=== PATIENT | female | born 1945 | race American Indian/Alaskan Native ===

== ENCOUNTER 2018-09-27 14:09 | Emergency (ER) | payer MEDICARE, BC ==
[2018-09-27 14:20] VITALS: BMI 32.5
--- NOTE | 2018-09-27 15:54 | C.PDOC ---
Time Seen by Provider: 09/27/18 14:34 Chief Complaint (Nursing): Upper Extremity Problem/Injury Past Medical History Vital Signs: Last Vital Signs Temp 99.1 F 09/27/18 14:22 Pulse 64 09/27/18 14:22 Resp 20 09/27/18 14:22 BP 197/84 H 09/27/18 14:22 Pulse Ox 97 09/27/18 14:22 Primary Care Provider: Henry Lopez - Medical History PMH: Arthritis, Back Problems, Bronchitis (hospitalized childhood), Colonic Polyps, COPD, Diabetes, Fractures (bilat hands right arm childhood), Gall Bladder Disease, Hepatitis, HTN, Osteoporosis, Sleep Apnea (no c pap) Denies: Chronic Kidney Disease Surgical History: Cholecystectomy, Tonsillectomy - [facility] Procedures CENTRAL VENOUS CATHETER PLACEMENT WITH GUIDANCE (03/21/14) EXCIS DEBRIDE OF WOUND, INFECT, OR BURN (02/07/13) OTHER SKIN & SUBQ I D (02/07/13) VENOUS CATHETERIZATION NEC (02/07/13) Family History: States: Unknown Family Hx - Social History Hx Tobacco Use: No Hx Alcohol Use: No Hx Substance Use: No - Immunization History Hx Tetanus Toxoid Vaccination: No Hx Influenza Vaccination: Yes Hx Pneumococcal Vaccination: Yes ED Course And Treatment O2 Sat by Pulse Oximetry: 97 Disposition - Disposition
--- NOTE | 2018-09-27 16:36 | CT ---
Date of service: 09/27/2018 PROCEDURE: CT HEAD WITHOUT CONTRAST. HISTORY: Trauma COMPARISON: None available. TECHNIQUE: Axial computed tomography images were obtained through the head/brain without intravenous contrast. Radiation dose: Total exam DLP = 974.37 mGy-cm. This CT exam was performed using one or more of the following dose reduction techniques: Automated exposure control, adjustment of the mA and/or kV according to patient size, and/or use of iterative reconstruction technique. FINDINGS: HEMORRHAGE: No intracranial hemorrhage. BRAIN: There are mild chronic microangiopathic changes. There is no mass, mass effect or abnormal extra-axial fluid collection. There is no territorial infarction. The midline sagittal structures are normal.There are coarse atherosclerotic calcifications in the cavernous carotid arteries. VENTRICLES: There is mild age-related global parenchymal volume loss and proportionate enlargement of the ventricles and cortical sulci. There is a cavum septum pellucidum CALVARIUM: There is no calvarial fracture or extracranial soft tissue swelling. PARANASAL SINUSES: There is moderate mucosal thickening in the ethmoid air cells and left maxillary sinus. MASTOID AIR CELLS: Predominantly clear. OTHER FINDINGS: None. IMPRESSION: No acute intracranial abnormality. Mild chronic microangiopathic changes and mild age-related global parenchymal volume loss. Chronic ethmoid and left maxillary sinusitis.
[2018-09-27 17:02] VITALS: BP 170/76; PULSE 90; RESP 18; TEMP 98.1; O2SAT 100
--- NOTE | 2018-09-27 17:02 | RAD ---
Date of service: 09/27/2018 PROCEDURE: Right Wrist Radiographs. HISTORY: trauma COMPARISON: None. TECHNIQUE: 4 views obtained. FINDINGS: BONES: Normal. No fracture. JOINTS: Normal. No dislocation. SOFT TISSUES: Normal. OTHER FINDINGS: None. IMPRESSION: Normal right wrist radiographs.
--- NOTE | 2018-09-27 17:03 | RAD ---
PROCEDURE: Right Hand Radiographs. HISTORY: trauma COMPARISON: None. TECHNIQUE: 3 views obtained. FINDINGS: BONES: Normal. No fracture. JOINTS: Normal. No osteoarthritic changes. SOFT TISSUES: Normal. OTHER FINDINGS: None. IMPRESSION: Normal right hand radiographs.
--- NOTE | 2018-09-27 17:03 | RAD ---
PROCEDURE: Radiographs of the Right Forearm HISTORY: trauma COMPARISON: None available. TECHNIQUE: Single lateral view submitted. One views obtained. FINDINGS: BONES: Limited examination consists of only a single view. No definite fracture. There is some cortical irregularity of the palmar aspect of the radial neck. Correlating with plain radiography of the elbow the same date, this is unlikely to represent acute fracture but may reflect old injury. JOINT SPACES: Unremarkable. OTHER FINDINGS: None. IMPRESSION: Limited examination. No acute fracture
--- NOTE | 2018-09-27 17:05 | RAD ---
Date of service: 09/27/2018 PROCEDURE: Radiographs of the right elbow. HISTORY: trauma COMPARISON: No prior. TECHNIQUE: 3 views obtained. FINDINGS: BONES: No acute fracture. There is a cortical step-off at the ventral aspect of the right radial neck, possibly the result of old injury. JOINTS: Normal. No osteoarthritis. SOFT TISSUES: Normal. JOINT EFFUSION: None. OTHER FINDINGS: None. IMPRESSION: No acute fracture.
--- NOTE | 2018-09-27 17:06 | RAD ---
Date of service: 09/27/2018 PROCEDURE: Bilateral Knee Radiographs. HISTORY: trauma COMPARISON: None. TECHNIQUE: 4 views obtained. FINDINGS: BONES: Right Knee: No acute fracture. Left Knee: Left knee arthroplasty. No acute fracture. JOINTS: Right Knee: Medial and patellofemoral osteoarthritis. No articular erosion. Left knee: Left knee arthroplasty. No evidence of prosthesis loosening. SOFT TISSUES: Right Knee: Normal. Left Knee: Normal. JOINT EFFUSION: Right Knee: None. Left Knee: None. OTHER FINDINGS: None. IMPRESSION: No acute fracture. Left total knee replacement. Right medial and patellofemoral osteoarthritis.
--- NOTE | 2018-09-27 17:24 | C.PDOC ---
History Of Present Illness 73 y/o female presents to ED with right arm pain after she fell out of her wheelchair today. Patient states she was leaving [facility] when her wheelchair hit a hole on the ground and she flipped forward, hitting her head. Patient denies LOC. Also complains of knee pain. Denies any other injuries or complaints. Time Seen by Provider: 09/27/18 14:34 Chief Complaint (Nursing): Upper Extremity Problem/Injury History Per: Patient History/Exam Limitations: no limitations Onset/Duration Of Symptoms: Hrs Current Symptoms Are (Timing): Still Present Past Medical History Reviewed: Historical Data, Nursing Documentation, Vital Signs Vital Signs: Last Vital Signs Temp 98.1 F 09/27/18 17:02 Pulse 90 09/27/18 17:02 Resp 18 09/27/18 17:02 BP 170/76 H 09/27/18 17:02 Pulse Ox 100 09/27/18 17:02 Primary Care Provider: Henry Lopez - Medical History PMH: Arthritis, Back Problems, Bronchitis (hospitalized childhood), Colonic Polyps, COPD, Diabetes, Fractures (bilat hands right arm childhood), Gall Bladder Disease, Hepatitis, HTN, Osteoporosis, Sleep Apnea (no c pap) Denies: Chronic Kidney Disease Surgical History: Cholecystectomy, Tonsillectomy - [facility] Procedures CENTRAL VENOUS CATHETER PLACEMENT WITH GUIDANCE (03/21/14) EXCIS DEBRIDE OF WOUND, INFECT, OR BURN (02/07/13) OTHER SKIN & SUBQ I D (02/07/13) VENOUS CATHETERIZATION NEC (02/07/13) Family History: States: No Known Family Hx - Social History Hx Tobacco Use: No Hx Alcohol Use: No Hx Substance Use: No - Immunization History Hx Tetanus Toxoid Vaccination: No Hx Influenza Vaccination: Yes Hx Pneumococcal Vaccination: Yes Review Of Systems Except As Marked, All Systems Reviewed And Found Negative. Constitutional: Negative for: Fever, Chills Gastrointestinal: Negative for: Vomiting Musculoskeletal: Positive for: Arm Pain (Right), Other (knee pain). Negative for: Neck Pain Neurological: Negative for: Other (LOC) Physical Exam - Physical Exam Appears: Non-toxic, No Acute Distress Skin: Warm, Dry Head: Atraumatic, Normacephalic Eye(s): bilateral: Normal Inspection, PERRL, EOMI Oral Mucosa: Moist Neck: Supple Cardiovascular: Rhythm Regular, No Murmur Respiratory: Normal Breath Sounds, No Rales, No Rhonchi, No Wheezing Gastrointestinal/Abdominal: Soft, No Tenderness Extremity: Tenderness (tenderness to bilateral knees), No Deformity, No Swelling, Other (Right forearm, wrist, and hand tenderness) Extremity: Bilateral: Normal Color And Temperature, Normal ROM Neurological/Psych: Oriented x3, Normal Speech, Normal Motor, Normal Sensation ED Course And Treatment O2 Sat by Pulse Oximetry: 100 (RA) Pulse Ox Interpretation: Normal - Other Rad Right wrist XR X-Ray: Read By Radiologist Interpretation: FINDINGS: BONES: Normal. No fracture. JOINTS: Normal. No dislocation. SOFT TISSUES: Normal. OTHER FINDINGS: None. IMPRESSION: Normal right wrist radiographs. R Knee XR X-Ray: Read By Radiologist Interpretation: FINDINGS: BONES: Right Knee: No acute fracture. Left Knee: Left knee arthroplasty. No acute fracture. JOINTS: Right Knee: Medial and patellofemoral osteoarthritis. No articular erosion. Left knee: Left knee arthroplasty. No evidence of prosthesis loosening. SOFT TISSUES: Right Knee: Normal. Left Knee: Normal. JOINT EFFUSION: Right Knee: None. Left Knee: None. OTHER FINDINGS: None. IMPRESSION: No acute fracture. Left total knee replacement. Right medial and patellofemoral osteoarthritis. R hand XR X-Ray: Read By Radiologist Interpretation: FINDINGS: BONES: Normal. No fracture. JOINTS: Normal. No osteoarthritic changes. SOFT TISSUES: Normal. OTHER FINDINGS: None. IMPRESSION: Normal right hand radiographs. R forearm XR X-Ray: Read By Radiologist Interpretation: FINDINGS: BONES: Limited examination consists of only a single view. No definite fracture. There is some cortical irregularity of the palmar aspect of the radial neck. Correlating with plain radiography of the elbow the same date, this is unlikely to represent acute fracture but may reflect old injury. JOINT SPACES: Unremarkable. OTHER FINDINGS: None. IMPRESSION: Limited examination. No acute fracture R elbow XR X-Ray: Read By Radiologist Interpretation: FINDINGS: BONES: No acute fracture. There is a cortical step- off at the ventral aspect of the right radial neck, possibly the result of old injury. JOINTS: Normal. No osteoarthritis. SOFT TISSUES: Normal. JOINT EFFUSION: None. OTHER FINDINGS: None. IMPRESSION: No acute fracture. - CT Scan/US Head CT Other Rad Studies (CT/US): Read By Radiologist, Radiology Report Reviewed CT/US Interpretation: FINDINGS: HEMORRHAGE: No intracranial hemorrhage. BRAIN: There are mild chronic microangiopathic changes. There is no mass, mass effect or abnormal extra-axial fluid collection. There is no territorial infarction. The midline sagittal structures are normal.There are coarse atherosclerotic calcifications in the cavernous carotid arteries. VENTRICLES: There is mild age-related global parenchymal volume loss and proportionate enlargement of the ventricles and cortical sulci. There is a cavum septum pellucidum. CALVARIUM: There is no calvarial fracture or extracranial soft tissue swelling. PARANASAL SINUSES: There is moderate mucosal thickening in the ethmoid air cells and left maxillary sinus. MASTOID AIR CELLS: Predominantly clear. OTHER FINDINGS: None. IMPRESSION: No acute intracranial abnormality. Mild chronic microangiopathic changes and mild age-related global parenchymal volume loss. Chronic ethmoid and left maxillary sinusitis. Medical Decision Making Medical Decision Making: Plan: --Head CT --Knee XR --Right elbow XR --Right forearm XR --Right hand XR --Right wrist XR --Tylenol 650 mg PO iamgign neg pain improve.d mechanical fall stable for dc. Disposition - Disposition Referrals: [facility] [place] [Outside] [facility] [Outside] Disposition: HOME/ ROUTINE Disposition Time: 17:00 Condition: STABLE Additional Instructions: follow up in clinic and with your doctor/return to er with worsening. Instructions: Wrist Sprain (DC), Preventing Falls, Minor Head Injury Forms: [facility] ([place]) - Clinical Impression Clinical Impression: Other hand sprain and strain, Fall, Knee sprain - Scribe Statement The provider has reviewed the documentation as recorded by the Tran Arce Provider Attestation: All medical record entries made by the Tran were at my direction and personally dictated by me. I have reviewed the chart and agree that the record accurately reflects my personal performance of the history, physical exam, medical decision making, and the department course for this patient. I have also personally directed, reviewed, and agree with the discharge instructions and disposition.
--- NOTE | 2018-09-30 13:17 | CARD ---
APPROVED REPORT Date of service: 09/27/2018 EKG Measurement Heart [id number] <Conclusion> Sinus bradycardia Cannot rule out Inferior infarct, age undetermined Anteroseptal infarct, age undetermined Abnormal ECG
== END 2018-09-27 17:42 | disposition home or self-care (01) ==
LOC: C.ER 14:09
DX: S63.91XA Sprain of unspecified part of right wrist and hand, initial encounter (principal); S66.911A Strain of unspecified muscle, fascia and tendon at wrist and hand level, right hand, initial encounter; S83.92XA Sprain of unspecified site of left knee, initial encounter; S83.91XA Sprain of unspecified site of right knee, initial encounter; W05.0XXA Fall from non-moving wheelchair, initial encounter